=== PATIENT | male | born 1955 | race Caucasian/White ===

== ENCOUNTER → 2016-10-31 | Outpatient (CLI) | payer BC ==
--- NOTE | ~2016-10-31 | CT57 ---
[facility] A Service of [facility] RADIOLOGY TEXT RESULTS PATIENT: KATINA SKINNER LOCATION: [facility] : 55 UNIT #: [id number] AGE: [address]: Guille Rosen MD SEX: M ORDER DR: [id number] [address] [address] [id number] O MR#: [id number] Acc #: [id number] NAME: KATINA SKINNER : 1955 SEX: M STUDY DATE/TIME: 10/31/2016 13:10 UNIT: [facility] ROOM: STUDY DESCRIPTION: CT Chest Wo Cont Attending Physician: Guille Rosen M.D. Referring Physician: Guille Rosen M.D. Ordering Physician: Guille Rosen M.D. Primary Care Physician: Estelle Brannon Aprn MEDICAL IMAGING REPORT This report is preliminary unless electronic signature is present. EXAM CT chest without contrast. INDICATIONS Follow up aortic enlargement. COMPARISON STUDY 10/29/14 TECHNIQUE Axial 5 mm images were obtained through the chest without contrast. This CT exam was performed with one or more of the following radiation dose reduction techniques: automatic exposure control, adjustment of mA and/or kV according to patient size, and iterative reconstruction. FINDINGS The ascending aorta shows fusiform enlargement measuring about 4.4 cm in maximum transverse dimension and is unchanged from the prior study. Descending aorta is normal in size. On the coronal reconstructions, the aortic root appears to be about 3.5 cm in transverse dimension. There is no mediastinal or hilar adenopathy. Visualized portions of the upper abdomen show mild diffuse fatty change throughout the liver. The lungs are clear. Bones are unremarkable. IMPRESSION 1. Stable fusiform enlargement of the ascending aorta measuring about 4.4 cm in maximum transverse or AP dimension. Aortic root appears normal in size. 2. The study is otherwise normal, except for mild fatty change throughout the liver. 3. The study is also unchanged from 2014. [facility] A Service [facility] RADIOLOGY TEXT RESULTS PATIENT: KATINA SKINNER LOCATION: [facility] : 55 UNIT #: [id number] AGE: [address]: Guille Rosen MD SEX: M ORDER DR: Dictated by... Da Garcia M.D. THIS IS AN ELECTRONICALLY VERIFIED REPORT Da Garcia M.D. at 11/01/2016 2:09 PM RONALDO/jenifer TD: 11/01/2016 12:20 JOB #: [id number] MEDICAL IMAGING REPORT Page 1 of 1
== END | disposition home or self-care (01) ==
LOC: SCT 12:32
DX: I71.2 Thoracic aortic aneurysm, without rupture (principal); Z91.040 Latex allergy status
CPT/HCPCS: 71250